=== PATIENT | male | born 1990 | race Two or more races ===

== ENCOUNTER 2020-01-01 20:46 | Emergency (ER) | payer BC, OTHER ==
[~2020-01-01] VITALS: Ht 180.3 cm; Wt 84.5 kg
--- NOTE | 2020-01-01 21:15 | NUR ---
BEDSIDE REPORT AND CARE FROM [facility] [place] AT THIS TIME. 29 Y/O M PRESENTS STATING "CP X4 DAYS. FEELS LIKE HEART BURN THAT NEVER GOES AWAY, IT'S LIKE A PRESSURE, COMES AND GOES." DENIES SOB, COUGH, FEVER, CHILLS, N/V/D, DIZZINESS. CONT PULSE OX, BP, CARDIAC MONITORS APPLIED. VSS. NSR ON MONITOR. REPORTS PAIN 3/10 IN CHEST. CP NON-REPRODUCABLE TO PALPATION. PT STATES "NOTHING MAKES IT BETTER OR WORSE." LIZ MARROQUIN HAS EVALUATED PT, ORDERS RECEIVED. LAB AT BEDSIDE. CALL LIGHT IN REACH. FALL PRECUATIONS IN PLACE. SIDE RIALS UPX2. RESTING COMFORTABLY ON ED GURNEY. A&OX4.
[2020-01-01 21:35] LABS: BASOPHILS # (AUTO) 0.04 x10^3/uL (0-0.1); BASOPHILS % (AUTO) 0 % (0-1); EOSINOPHILS # (AUTO) 0.09 x10^3/uL (0-0.4); EOSINOPHILS % (AUTO) 1 % (1-7); LYMPHOCYTES # (AUTO) 2.29 x10^3/uL (1-3.4); LYMPHOCYTES % (AUTO) 24 % (22-44); MD NO; MEAN CORPUSCULAR HEMOGLOBIN 30.8 pg (27.5-34.5); MEAN CORPUSCULAR HGB CONC 33.1 g/dL (33.2-36.2); MEAN PLATELET VOLUME 8.2 fL (7.4-10.4); MONOCYTES # (AUTO) 0.75 x10^3/uL (0.2-0.8); MONOCYTES % (AUTO) 8 % (2-9); NEUTROPHILS # (AUTO) 6.52 x10^3/uL (1.8-6.8); NEUTROPHILS % (AUTO) 67 % (42-75); PLATELET COUNT 262 x10^3/uL (130-400); RED BLOOD COUNT 5.07 x10^6/uL (4.38-5.82); RED CELL DISTRIBUTION WIDTH 11.9 % (9.4-14.8)
[2020-01-01 21:40] LABS: ALBUMIN 4.1 g/dL (3.4-5.0); ANION GAP 6 mmol/L (5-15); CALCIUM 9.2 mg/dL (8.5-10.1); CHLORIDE 106 mmol/L (98-107); CREATININE 0.96 mg/dL (0.7-1.3)
[2020-01-01 21:43] LABS: TROPONIN I < 0.015 ng/mL (0.000-0.045)
--- NOTE | 2020-01-01 22:15 | NUR ---
LIZ MARROQUIN AT BEDSIDE FOR RECHECK, DISCUSSING TEST RESULTS AND DISCHARGE POC WITH PT. AWAITING CHART AND DISCHARGE PAPERS.
[2020-01-01 22:54] VITALS: BP 109/66
== END 2020-01-01 22:58 | disposition home or self-care (01) ==
LOC: ED 21:00
DX: R07.89 Other chest pain (principal)
CPT/HCPCS: 36415; 71045; 80048; 82040; 84484; 85025; 93005; 99285